=== PATIENT | male | born 1950 | race Asian ===

== ENCOUNTER 2016-07-17 17:11 | Emergency (ER) | payer MEDICARE, MEDICAID ==
[~2016-07-17] VITALS: Ht 167.6 cm; Wt 68.0 kg
--- NOTE | 2016-07-17 17:11 | NUR ---
PT BIBA TO BED 4 AT THIS TIME.
[2016-07-17 17:22] VITALS: BP 166/82
--- NOTE | 2016-07-17 17:53 | NUR ---
PATIENT IS A 65 YO MALE BIB EMS FROM HOME FOR HEADACHE AND BLURRY VISION FOR 3 DAYS. AWAKE AND ALERT ON ARRIVAL, TO BED 4 MD AYON PENDING.
--- NOTE | 2016-07-17 18:29 | NUR ---
PATIENT RESTING COMFORTABLY VITAL SIGNS STABLE AWAITING ORDERS.
[2016-07-17 18:59] LABS: BASOPHILS # (AUTO) 0.2 K/uL (0.00-0.22); BASOPHILS % (AUTO) 1.7 % (0.0-2.0); EOSINOPHILS # (AUTO) 0.2 K/uL (0-0.4); EOSINOPHILS % (AUTO) 2.2 % (0.0-4.0); HEMATOCRIT 48.1 % (36-52); HEMOGLOBIN 15.4 g/dL (12.0-18.0); LYMPHOCYTES # (AUTO) 1.4 K/uL (2.0-11.5); LYMPHOCYTES % (AUTO) 14.7 % (20.5-51.1); MEAN CORPUSCULAR HEMOGLOBIN 29 pg (27-31); MEAN CORPUSCULAR HGB CONC 32 g/dL (33-37); MEAN CORPUSCULAR VOLUME 89 fL (80-94); MONOCYTES # (AUTO) 0.5 K/uL (0.8-1.0); MONOCYTES % (AUTO) 5.6 % (1.7-9.3); NEUTROPHILS # (AUTO) 7.1 K/uL (1.8-7.7); NEUTROPHILS % (AUTO) 75.8 % (42.2-75.2); PLATELET COUNT (AUTO) 198 K/uL (140-450); RED BLOOD CELL COUNT(AUTO) 5.41 MIL/uL (4.20-6.10); RED CELL DISTRIBUTION WIDTH 12.4 % (11.6-13.7); WHITE BLOOD COUNT (AUTO) 9.4 K/uL (4.8-10.8)
[2016-07-17 19:00] LABS: APPEARANCE,URINE CLEAR (CLEAR); BILIRUBIN,URINE NEGATIVE (NEGATIVE); BLOOD, URINE NEGATIVE (NEGATIVE); LEUKOCYTE ESTERASE ,URINE NEGATIVE (NEGATIVE); NITRITE, URINE NEGATIVE (NEGATIVE); PROTEIN,URINE NEGATIVE (NEGATIVE); UGLUCOSE NEGATIVE (NEGATIVE); UROBILINOGEN,URINE 0.2 EU/dL (0.2 - 1)
[2016-07-17 19:03] LABS: COLOR,URINE STRAW (YELLOW); RBC,URINE NONE SEEN /HPF (0-5)
[2016-07-17 19:07] LABS: BACTERIA,URINE None Seen /HPF (None Seen); SQUAMOUS EPITHELIAL CELL,UR None Seen /LPF (0-3 (FEW)); WBC,URINE NONE SEEN /HPF (0-5)
[2016-07-17 19:09] LABS: ANION GAP 13.4 (8-16); CALCIUM 9.1 mg/dL (8.5-10.1); CARBON DIOXIDE 27.5 mmol/L (21-32); POTASSIUM 3.9 mmol/L (3.5-5.1)
--- NOTE | 2016-07-17 19:11 | NUR ---
REPORT GIVEN TO SONJA FARIA; TRANSFER OF CARE AT THIS TIME.
[2016-07-17 19:15] LABS: ALBUMIN 4.3 g/dL (3.4-5.0); TOTAL BILIRUBIN 0.4 mg/dL (0.0-1.0); TOTAL PROTEIN, SERUM 7.9 g/dL (6.4-8.2)
[2016-07-17 19:41] LABS: PARTIAL THROMBOPLASTIN TIME 27.8 secs (22-35.6); PROTHROMBIN TIME 9.7 secs (10.8-13.4)
[2016-07-17] MEDS ORDERED: IBUPROFEN 800 MG TAB PO ONE ×2 (20:05→20:15)
[2016-07-17] MEDS ORDERED: APAP/BUTAL/CAFF 325/50/40 MG 1 TAB PO PRN (20:05)
[2016-07-17] MEDS ORDERED: MECLIZINE 25 MG TAB PO ONE ×2 (20:05→20:15)
[2016-07-17] MEDS ORDERED: APAP/BUTAL/CAFF 325/50/40 MG 1 TAB PO STA (20:11)
--- NOTE | 2016-07-17 20:26 | NUR ---
Patient appears to be resting comfortably in bed. Vital Signs within normal limits. Respirations even and unlabored.
--- NOTE | 2016-07-17 20:26 | NUR ---
REBECCA NOT HELD IN PYXIS. AWAITING RETRIEVAL BY KENNEL STAFF MEMBER
--- NOTE | 2016-07-17 20:48 | NUR ---
HOUSE SUP CALLED IN [facility] TO COME AND RETRIEVE MEDICATION
[2016-07-17 22:03] VITALS: BP 155/78
--- NOTE | 2016-07-17 22:03 | NUR ---
Patient discharged with v/s stable. Written and verbal after care instructions given and explained. Patient alert, oriented and verbalized understanding of instructions. Ambulatory with steady gait. All questions addressed prior to discharge. ID band removed. Patient advised to follow up with PMD. Rx of MECLIZINE AND FIORICET given. Patient educated on indication of medication including possible reaction and side effects. Opportunity to ask questions provided and answered.
== END 2016-07-17 22:04 | disposition home or self-care (01) ==
LOC: MED 17:11
DX: G44.209 Tension-type headache, unspecified, not intractable (principal); I10 Essential (primary) hypertension; E11.9 Type 2 diabetes mellitus without complications
CPT/HCPCS: 36415; 70450; 80053; 81001; 84484; 85025; 85610; 85730; 93005; 99285; J8597